=== PATIENT | male | born 1960 | race Caucasian/White ===

== ENCOUNTER 2017-07-02 09:12 | Emergency (ER) | payer OTHER ==
[2017-07-02] MEDS ORDERED: IBUPROFEN 800 MG TABLET PO ONE (10:02)
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
[2017-07-02 11:24] VITALS: BP 115/72
== END 2017-07-02 11:26 | disposition home or self-care (01) ==
LOC: ER 09:12
DX: M54.5 Low back pain (principal); M54.9 Dorsalgia, unspecified; M54.2 Cervicalgia; V87.7XXA Person injured in collision between other specified motor vehicles (traffic), initial encounter; Z79.899 Other long term (current) drug therapy
CPT/HCPCS: 72110; 99283

== ENCOUNTER 2017-08-05 11:14 | Emergency (ER) | payer OTHER ==
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
[2017-08-05 13:24] VITALS: BP 147/94
== END 2017-08-05 13:25 | disposition home or self-care (01) ==
LOC: ER 11:14
DX: Z04.1 Encounter for examination and observation following transport accident (principal); V49.60XD Unspecified car occupant injured in collision with unspecified motor vehicles in traffic accident, subsequent encounter; M50.30 Other cervical disc degeneration, unspecified cervical region; G44.209 Tension-type headache, unspecified, not intractable; R20.0 Anesthesia of skin; R20.2 Paresthesia of skin; G89.29 Other chronic pain; Z79.891 Long term (current) use of opiate analgesic; Z79.1 Long term (current) use of non-steroidal anti-inflammatories (NSAID); I10 Essential (primary) hypertension; Z87.891 Personal history of nicotine dependence
CPT/HCPCS: 72050; 99283